=== PATIENT | female | born 1980 | race Caucasian/White ===

== ENCOUNTER 2016-10-21 19:56 | Emergency (ER) | payer OTHER ==
--- NOTE | 2016-10-21 20:29 | ED NURSING NOTES ---
Clinical Report - Nurses [facility] [place] [address] 10/21/2016 19:57 Patient: BRITTANY HENDRICKSON TRIAGE Triage time 2004. Acuity: LEVEL 4. Chief Complaint: INJURY TO LEFT SHOULDER. Alert. --20:19 Tanya Perez 20:16 10/21/16. BP: 157/81. HR: 115. RR: 20. O2 saturation: 98%. Temp: 98.2 F. Pain level now 05/18. --20:19 Tanya Perez. Weight: 212.9 kg. Height/Length: 67 inches. BMI: 73.6. --20:15 Tanya Perez. Medications Aleve Oral. --20:17 Tanya Perez. Medication/allergy information source: the patient. --20:19 Tanya Perez. Allergies Tegretol. --20:18 Tanya Perez Phenobarbital. --20:18 Tanya Perez. History Arrived by private vehicle. Historian: patient. Accompanied by family. This occurred (5 days ago). Mechanism of injury: fell. Treatment PATTERNATOR: Splint and (Aleve). SOCIAL HX: Never smoker. Occasional alcohol use. --20:19 Tanya Perez. PROBLEMS: Dysfunctional Uterine Bleeding. Ovarian Cyst. Uterine Fibroid. Gout. Skin Cancer. --20:18 Tanya Perez. ADDITIONAL SURGERIES: Breast reduction. Ear surgery. Tonsillectomy. 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 --20:18 Tanya Perez. Interventions ID band on patient. To treatment room. --20:19 Tanya Perez. PHYSICAL ASSESSMENT Ambulatory to room. GENERAL / NEURO / PSYCH: Oriented X 4. Appears in pain. EXTREMITIES: Limited ROM present. Capillary refill is less than 2 seconds in the extremities. Extremity pulses are within normal limits. Left shoulder: tenderness located in the anterior aspect of the shoulder. Limited ROM due to pain. SKIN: Skin intact. Skin is warm and dry. --20:20 Tanya Perez. NURSING PROGRESS NOTES Reassurance given. Call light placed in reach. Bed placed in lowest position. Brakes of bed on. Patient ready for evaluation- chart flagged. --20:20 Tanya Perez 20:24 10/21/2016 Percocet (Oxycodone-Acetaminophen) PO 5/325 mg Tablets 1 tab given. Allergies verified, confirmed 5 rights and sedative warning given to the patient. --20:24 Tanya Perez 20:24 10/21/2016 Zofran ODT (Ondansetron) PO 4 mg given. Allergies verified and confirmed 5 rights. --20:24 Tanya Perez 20:25 10/21/2016 Prednisone PO 60 mg given. Allergies verified and confirmed 5 rights. --20:25 Tanya Perez. DISPOSITION / DISCHARGE Departure time: 2034. Condition at departure: unchanged and stable. No learning barriers present. Discharge instructions provided and reviewed with the patient. Reviewed medication(s). Patient verbalized understanding. Written instructions provided in [place]. The patient was discharged by the physician. She was discharged home and accompanied by family. She left the Emergency Department ambulatory and via private vehicle. Family member driving. --20:36 Tanya Perez. Locked/Released at 10/21/2016 20:36 by Tanya Perez,
--- NOTE | 2016-10-21 20:29 | ED ORDER SUMMARY ---
..... Patient: BRITTANY HENDRICKSON OrderSheet [facility] VisitID: [id number] [address] [place] [address] 35y, F Registration Date/Time: 10/21/2016 ORDER SHEET Weight: 212.9 kg Allergies: Tegretol, Phenobarbital GENERAL ORDERS: MEDICATION ORDERS: Percocet PO 5/325 mg (NOW) (20:15 10/21/2016 SHImearyan OLIVEIRA) ([facility] Zofran ODT PO 4 mg (NOW) (20:15 10/21/2016 SHImearyan OLIVEIRA) (20:[facility]) Prednisone PO 60 mg (NOW) (20:15 [facility]2016 [facility] IV FLUIDS: ORDER SHEET NOTES: [Electronically signed by Tanya Perez (20:36 10/21/2016)] [Electronically signed by Gil Ferguson DO (22:59 10/21/2016)] [Electronically locked/signed by Tanya Perez (20:36 10/21/2016)]
--- NOTE | 2016-10-21 20:29 | ED ORDER SUMMARY ---
..... Patient: BRITTANY HENDRICKSON OrderSheet [facility] VisitID: [id number] [address] [place] [place] [address] 35y, F Registration Date/Time: 10/21/2016 ORDER SHEET Weight: 212.9 kg Allergies: Tegretol, Phenobarbital GENERAL ORDERS: MEDICATION ORDERS: Percocet PO 5/325 mg (NOW) (20:15 10/21/2016 SHImsaryan OLIVEIRA) (20:[facility] Zofran ODT PO 4 mg (NOW) (20:15 10/21/2016 SHImsaryan OLIVEIRA) (20:[facility] Prednisone PO 60 mg (NOW) (20:15 10/21/2016 [facility] ([facility] IV FLUIDS: ORDER SHEET NOTES: [Electronically signed by Tanya Perez (20:36 10/21/2016)] [Electronically signed by Gil Ferguson DO (22:59 10/21/2016)] [Electronically locked/signed by Tanya Perez (20:36 10/21/2016)]
--- NOTE | 2016-10-21 20:29 | ED NURSING NOTES ---
Clinical Report - Nurses [facility] [place] [address] 10/21/2016 19:57 Patient: BRITTANY HENDRICKSON TRIAGE Triage time 2004. Acuity: LEVEL 4. Chief Complaint: INJURY TO LEFT SHOULDER. Alert. --20:19 Tanya Perez 20:16 10/21/16. BP: 157/81. HR: 115. RR: 20. O2 saturation: 98%. Temp: 98.2 F. Pain level now 05/18. --20:19 Tanya Perez. Weight: 212.9 kg. Height/Length: 67 inches. BMI: 73.6. --20:15 Tanya Perez. Medications Aleve Oral. --20:17 Tanya Perez. Medication/allergy information source: the patient. --20:19 Tanya Perez. Allergies Tegretol. --20:18 Tanya Perez Phenobarbital. --20:18 Tanya Perez. History Arrived by private vehicle. Historian: patient. Accompanied by family. This occurred (5 days ago). Mechanism of injury: fell. Treatment GLOBAL LOGISTICS MANAGER: Splint and (Aleve). SOCIAL HX: Never smoker. Occasional alcohol use. --20:19 Tanya Perez. PROBLEMS: Dysfunctional Uterine Bleeding. Ovarian Cyst. Uterine Fibroid. Gout. Skin Cancer. --20:18 Tanya Perez. ADDITIONAL SURGERIES: Breast reduction. Ear surgery. Tonsillectomy. 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 --20:18 Tanya Perez. Interventions ID band on patient. To treatment room. --20:19 Tanya Perez. PHYSICAL ASSESSMENT Ambulatory to room. GENERAL / NEURO / PSYCH: Oriented X 4. Appears in pain. EXTREMITIES: Limited ROM present. Capillary refill is less than 2 seconds in the extremities. Extremity pulses are within normal limits. Left shoulder: tenderness located in the anterior aspect of the shoulder. Limited ROM due to pain. SKIN: Skin intact. Skin is warm and dry. --20:20 Tanya Perez. NURSING PROGRESS NOTES Reassurance given. Call light placed in reach. Bed placed in lowest position. Brakes of bed on. Patient ready for evaluation- chart flagged. --20:20 Tanya Perez 20:24 10/21/2016 Percocet (Oxycodone-Acetaminophen) PO 5/325 mg Tablets 1 tab given. Allergies verified, confirmed 5 rights and sedative warning given to the patient. --20:24 Tanya Perez 20:24 10/21/2016 Zofran ODT (Ondansetron) PO 4 mg given. Allergies verified and confirmed 5 rights. --20:24 Tanya Perez 20:25 10/21/2016 Prednisone PO 60 mg given. Allergies verified and confirmed 5 rights. --20:25 Tanya Perez. DISPOSITION / DISCHARGE Departure time: 2034. Condition at departure: unchanged and stable. No learning barriers present. Discharge instructions provided and reviewed with the patient. Reviewed medication(s). Patient verbalized understanding. Written instructions provided in [place]. The patient was discharged by the physician. She was discharged home and accompanied by family. She left the Emergency Department ambulatory and via private vehicle. Family member driving. --20:36 Tanya Perez. Locked/Released at 10/21/2016 20:36 by Tanya Perez,
--- NOTE | 2016-10-21 20:29 | ED CLINICAL REPORT ---
Clinical Report - Physicians/Mid Levels Located Within [facility] [address] [place] [address] 10/21/2016 19:57 Patient: BRITTANY HENDRICKSON Time Seen: 20:05. Arrived- By private vehicle. Historian- patient. HISTORY OF PRESENT ILLNESS Chief Complaint: Injury to right shoulder. The injury happened about 5 days ago. Dislocated while raising arm. Patient is experiencing severe pain. Patient denies injury to the head or neck. No other injury. REVIEW OF SYSTEMS The patient has had tingling. No swelling, numbness, weakness, suspected foreign body or skin laceration. PAST HISTORY See nurses notes. Ops:Breast reduction. Ear surgery, excision of skin cancer, Cat scratch fever lesion excision seizures Illness: Asthma, morbid obesity. The patient's dominant hand is the right. SOCIAL HISTORY Never smoker. Occasional alcohol use. No drug use. ADDITIONAL NOTES The nursing notes have been reviewed. PHYSICAL EXAM Vital Signs: 10/21/2016 20:16 BP: 157/81. HR: 115. RR: 20. O2 saturation: 98%. Temp: 98.2 F. Appearance: Alert. Oriented X3. Patient in mild distress. Head: Head atraumatic. Eyes: Pupils equal, round and reactive to light. Eyes normal inspection. ENT: Nose normal. Neck: Normal inspection. Neck supple. C-spine non-tender. CVS: Heart sounds normal. Pulses normal. Respiratory: No respiratory distress. Breath sounds normal. Chest nontender. Abdomen: No visible injury. Obese. Back: Normal inspection. No tenderness. Skin: Skin dry. Normal skin color. Normal skin turgor. Extremities: Left shoulder: moderate tenderness located in the anterior aspect of the shoulder. Limited ROM due to pain. Neurovascular intact distally. No erythema, swelling, laceration, ecchymosis or deformity. Left acromio-clavicular joint: mild tenderness. No erythema, swelling or deformity. Extremities otherwise negative. Neuro, Vascular and Tendons: Sensation intact. Motor intact. Vascular status intact. No pulse deficit present. Skin not pallid. Capillary refill not prolonged. Neuro: Oriented X 3. LABS, X-RAYS, AND EKG Pulse Oximetry: 10/21/2016 20:16 O2 saturation: 98%. (FIO2 - room air). Interpretation: normal. PROGRESS AND PROCEDURES Course of Care: Percocet 5 mg PO given. Prednisone 60 mg PO given. Zofran 4 mg ODT PO given. Pt had recent neg x-rays by report - no indication for repeat. Patient/family counseled. Old ED records reviewed. Disposition: Discharged. Condition: stable and improved. CLINICAL IMPRESSION Muscle strain of the right deltoid and rotator cuff at the shoulder. Acute traumatic tendonitis in the right shoulder. INSTRUCTIONS Apply ice. Elevate affected areas above chest level. Wear simple sling as needed. Do not work for two days. (Gentle range of motion exercised with the shoulder - as directed). Warnings: SEDATIVE MEDICATION: You were given sedative medication during your visit. Do not drive or operate dangerous machinery. CONTROLLED SUBSTANCE WARNINGS. Further evaluation is necessary in order to conduct further tests (You may need an MRI of your shoulder if not improving - to be determined by your orthopedic doctor). It is very important to follow up with a physician. GENERAL WARNINGS: Return or contact your physician immediately if your condition worsens or changes unexpectedly, if not improving as expected, or if other problems arise. Your Current Medications: CONTINUE TAKING THE FOLLOWING MEDICATIONS: Aleve Oral. Prescription Medications: Zofran ODT 4 mg: take 1-2 orally every 6 hours as needed for nausea. Dispense five (5). No refill. Substitution is permissible. Oxycodone/APAP 5 mg/325 mg: take 1-2 tablets orally every 8 hours as needed for pain. Dispense ten (10). No refill. Prednisone 20 mg: take 2 orally every day for 3 days. Dispense sufficient quantity. No refills. OTC Medications: Acetaminophen (available over the counter): take according to label instructions. Follow-up: Follow up with your doctor tomorrow as needed. Follow up with an orthopedic surgeon in two days as scheduled. (Electronically signed by Gil Ferguson DO 10/21/2016 22:59)
--- NOTE | 2016-10-21 22:59 | ED DISCHARGE INSTRUCTIONS ---
Patient: BRITTANY HENDRICKSON General Instructions [facility] VisitID: [id number] [place] [address] 35y, F Registration Date/Time: 10/21/2016 Muscle strain of the right deltoid and rotator cuff at the shoulder. Acute traumatic tendonitis in the right shoulder. INSTRUCTIONS Apply ice. Elevate affected areas above chest level. Wear simple sling as needed. Do not work for two days. (Gentle range of motion exercised with the shoulder - as directed). Warnings: SEDATIVE MEDICATION: You were given sedative medication during your visit. Do not drive or operate dangerous machinery. CONTROLLED SUBSTANCE WARNINGS. Further evaluation is necessary in order to conduct further tests (You may need an MRI of your shoulder if not improving - to be determined by your orthopedic doctor). It is very important to follow up with a physician. GENERAL WARNINGS: Return or contact your physician immediately if your condition worsens or changes unexpectedly, if not improving as expected, or if other problems arise. Your Current Medications: CONTINUE TAKING THE FOLLOWING MEDICATIONS: Aleve Oral. Prescription Medications: Zofran ODT 4 mg: take 1-2 orally every 6 hours as needed for nausea. Dispense five (5). No refill. Substitution is permissible. Oxycodone/APAP 5 mg/325 mg: take 1-2 tablets orally every 8 hours as needed for pain. Dispense ten (10). No refill. Prednisone 20 mg: take 2 orally every day for 3 days. Dispense sufficient quantity. No refills. OTC Medications: Acetaminophen (available over the counter): take according to label instructions. Follow-up: Follow up with your doctor tomorrow as needed. Follow up with an orthopedic surgeon in two days as scheduled. ADDITIONAL INFORMATION Muscle Strain,Extremity A MUSCLE STRAIN is a stretching and tearing of muscle fibers. This causes pain, especially with motion of that muscle. There may also be some swelling and bruising. Home Care: 1) Keep the injured area raised to reduce pain and swelling. This is especially important during the first 48 hours. 2) Make an ice pack (ice cubes in a plastic bag, wrapped in a towel) and apply for 20 minutes every 1-2 hours the first day. You should continue with ice packs 3-4 times a day for the second and third days. Unless otherwise instructed, on the fourth day you may begin hot soaks or hot packs (small towel soaked in hot water) 3-4 times a day while you gently exercise the involved area. 3) You may use acetaminophen (Tylenol) or ibuprofen (Motrin, Advil) to control pain, unless another medicine was prescribed. [ NOTE : If you have chronic liver or kidney disease or ever had a stomach ulcer or GI bleeding, talk with your doctor before using these medicines.] 4) For LEG STRAINS: If CRUTCHES have been recommended, do not bear full weight on the injured leg until you can do so without pain. You may return to sports when you are able to hop and run on the injured leg without pain. Follow Up with your doctor or this facility if you are not improving within the next five days. Get Prompt Medical Attention if any of the following occur: -- Fingers or toes become swollen, cold, blue, numb or tingly -- Pain or swelling increases Tendonitis A tendon is the thick fibrous cord that joins muscle to bone and causes joints to move. Tendonitis is inflammation of the tendon which may be due to overuse, injury or infection. This usually involves the shoulders, forearm, wrist, hands and foot. Symptoms include local pain, swelling and tenderness to the touch. Movement of the involved joint increases the pain. Tendonitis requires about 4 to 6 weeks to heal. It is treated by preventing motion of the tendon with a splint or brace and use of anti-inflammatory medicine. Home Care: Apply an ice pack (ice cubes in a plastic bag, wrapped in a towel) over the injured area for 20 minutes every 1-2 hours the first day for pain relief. Continue this 3-4 times a day until the pain and swelling goes away. Rest the inflamed joint and protect it from movement. You may use ibuprofen (Motrin, Advil) or naproxen (Aleve, Naprosyn) to treat pain and inflammation, unless another medicine was prescribed. If you can't take these medicines, acetaminophen (Tylenol) may help with the pain, but does not treat inflammation. [NOTE : If you have chronic liver or kidney disease or ever had a stomach ulcer or GI bleeding, talk with your doctor before using these medicines.] As your symptoms improve, begin gradual motion at the involved joint. Follow Up With Your Doctor If Not Improving After The First Five Days Of Treatment. Get Prompt Medical Attention If Any Of The Following Occur: Redness over the painful area Increasing pain or swelling at the joint Fever of 100.4F (38C) or higher, or as directed by your healthcare provider Sling A sling is designed to support your arm in a position of rest. It is used for injuries of the hand, forearm, upper arm, and shoulder. A shoulder that is immobilized too long can become stiff and lose range of motion. Follow up with your doctor as advised and do not use the sling longer than directed. Home Use: Leave the sling in place as long as directed by your doctor. Unless told otherwise, you may remove it when bathing, dressing, and when you go to sleep. The sling is adjustable. If it becomes loose, adjust it so that your forearm is horizontal (level with the ground). Your hand should be level with the elbow. Ondansetron Oral disintegrating tablet What is this medicine? ONDANSETRON (on TEE se reuben) is used to treat nausea and vomiting caused by chemotherapy. It is also used to prevent or treat nausea and vomiting after surgery. How should I use this medicine? These tablets are made to dissolve in the mouth. Do not try to push the tablet through the foil backing. With dry hands, peel away the foil backing and gently remove the tablet. Place the tablet in the mouth and allow it to dissolve, then swallow. While you may take these tablets with water, it is not necessary to do so. Talk to your rice farmer regarding the use of this medicine in children. Special care may be needed. What side effects may I notice from receiving this medicine? Side effects that you should report to your doctor or health assistant child care teacher as soon as possible: allergic reactions like skin rash, itching or hives, swelling of the face, lips, or tongue breathing problems dizziness fast or irregular heartbeat feeling faint or lightheaded, falls fever and chills swelling of the hands and feet tightness in the chest Side effects that usually do not require medical attention (report to your doctor or health assistant child care teacher if they continue or are bothersome): constipation or diarrhea headache What may interact with this medicine? Do not take this medicine with any of the following medications: -apomorphine -cisapride -dofetilide -dronedarone -pimozide -thioridazine -ziprasidone This medicine may also interact with the following medications: -carbamazepine -phenytoin -rifampicin -tramadol -other medicines that prolong the QT interval (cause an abnormal heart rhythm) What if I miss a dose? If you miss a dose, take it as soon as you can. If it is almost time for your next dose, take only that dose. Do not take double or extra doses. Where should I keep my medicine? Keep out of the reach of children. Store between 2 and 30 degrees C (36 and 86 degrees F). Throw away any unused medicine after the expiration date. What should I tell my health care provider before I take this medicine? They need to know if you have any of these conditions: heart disease history of irregular heartbeat liver disease low levels of magnesium or potassium in the blood an unusual or allergic reaction to ondansetron, granisetron, other medicines, foods, dyes, or preservatives or trying to get breast-feeding What should I watch for while using this medicine? Check with your doctor or health assistant child care teacher as soon as you can if you have any sign of an allergic reaction. Oxycodone Hydrochloride, Acetaminophen Oral tablet What is this medicine? ACETAMINOPHEN; OXYCODONE (a set a MACIEJ monse fen; ox i KOE done) is a pain reliever. It is used to treat mild to moderate pain. How should I use this medicine? Take this medicine by mouth with a full glass of water. Follow the directions on the prescription label. Take your medicine at regular intervals. Do not take your medicine more often than directed. Talk to your rice farmer regarding the use of this medicine in children. Special care may be needed. Patients over 65 years old may have a stronger reaction and need a smaller dose. What side effects may I notice from receiving this medicine? Side effects that you should report to your doctor or health assistant child care teacher as soon as possible: allergic reactions like skin rash, itching or hives, swelling of the face, lips, or tongue breathing difficulties, wheezing confusion light headedness or fainting spells severe stomach pain yellowing of the skin or the whites of the eyes Side effects that usually do not require medical attention (report to your doctor or health assistant child care teacher if they continue or are bothersome): dizziness drowsiness nausea vomiting What may interact with this medicine? alcohol antihistamines barbiturates like amobarbital, butalbital, butabarbital, methohexital, pentobarbital, phenobarbital, thiopental, and secobarbital benztropine drugs for bladder problems like solifenacin, trospium, oxybutynin, tolterodine, hyoscyamine, and methscopolamine drugs for breathing problems like ipratropium and tiotropium drugs for certain stomach or intestine problems like propantheline, homatropine methylbromide, glycopyrrolate, atropine, belladonna, and dicyclomine general anesthetics like etomidate, ketamine, nitrous oxide, propofol, desflurane, enflurane, halothane, isoflurane, and sevoflurane medicines for depression, anxiety, or psychotic disturbances medicines for sleep muscle relaxants naltrexone narcotic medicines (opiates) for pain phenothiazines like perphenazine, thioridazine, chlorpromazine, mesoridazine, fluphenazine, prochlorperazine, promazine, and trifluoperazine scopolamine tramadol trihexyphenidyl What if I miss a dose? If you miss a dose, take it as soon as you can. If it is almost time for your next dose, take only that dose. Do not take double or extra doses. Where should I keep my medicine? Keep out of the reach of children. This medicine can be abused. Keep your medicine in a safe place to protect it from theft. Do not share this medicine with anyone. Selling or giving away this medicine is dangerous and against the law. Store at room temperature between 20 and 25 degrees C (68 and 77 degrees F). Keep container tightly closed. Protect from light. This medicine may cause accidental overdose and if it is taken by other adults, children, or pets. Flush any unused medicine down the toilet to reduce the chance of harm. Do not use the medicine after the expiration date. What should I tell my health care provider before I take this medicine? They need to know if you have any of these conditions: brain tumor Crohn's disease, inflammatory bowel disease, or ulcerative colitis drink more than 3 alcohol containing drinks per day drug abuse or addiction head injury heart or circulation problems kidney disease or problems going to the bathroom liver disease lung disease, asthma, or breathing problems an unusual or allergic reaction to acetaminophen, oxycodone, other opioid analgesics, other medicines, foods, dyes, or preservatives or trying to get breast-feeding What should I watch for while using this medicine? Tell your doctor or health assistant child care teacher if your pain does not go away, if it gets worse, or if you have new or a different type of pain. You may develop tolerance to the medicine. Tolerance means that you will need a higher dose of the medication for pain relief. Tolerance is normal and is expected if you take this medicine for a long time. Do not suddenly stop taking your medicine because you may develop a severe reaction. Your body becomes used to the medicine. This does NOT mean you are addicted. Addiction is a behavior related to getting and using a drug for a non-medical reason. If you have pain, you have a medical reason to take pain medicine. Your doctor will tell you how much medicine to take. If your doctor wants you to stop the medicine, the dose will be slowly lowered over time to avoid any side effects. You may get drowsy or dizzy. Do not drive, use machinery, or do anything that needs mental alertness until you know how this medicine affects you. Do not stand or sit up quickly, especially if you are an older patient. This reduces the risk of dizzy or fainting spells. Alcohol may interfere with the effect of this medicine. Avoid alcoholic drinks. There are different types of narcotic medicines (opiates) for pain. If you take more than one type at the same time, you may have more side effects. Give your health care provider a list of all medicines you use. Your doctor will tell you how much medicine to take. Do not take more medicine than directed. Call emergency for help if you have problems breathing. The medicine will cause constipation. Try to have a bowel movement at least every 2 to 3 days. If you do not have a bowel movement for 3 days, call your doctor or health assistant child care teacher. Do not take Tylenol (acetaminophen) or medicines that have acetaminophen with this medicine. Too much acetaminophen can be very dangerous. Many nonprescription medicines contain acetaminophen. Always read the labels carefully to avoid taking more acetaminophen. Prednisone Oral tablet What is this medicine? PREDNISONE (PRED ni sone) is a corticosteroid. It is commonly used to treat inflammation of the skin, joints, lungs, and other organs. Common conditions treated include asthma, allergies, and arthritis. It is also used for other conditions, such as blood disorders and diseases of the adrenal glands. How should I use this medicine? Take this medicine by mouth with a glass of water. Follow the directions on the prescription label. Take this medicine with food. If you are taking this medicine once a day, take it in the morning. Do not take more medicine than you are told to take. Do not suddenly stop taking your medicine because you may develop a severe reaction. Your doctor will tell you how much medicine to take. If your doctor wants you to stop the medicine, the dose may be slowly lowered over time to avoid any side effects. Talk to your rice farmer regarding the use of this medicine in children. Special care may be needed. What side effects may I notice from receiving this medicine? Side effects that you should report to your doctor or health assistant child care teacher as soon as possible: allergic reactions like skin rash, itching or hives, swelling of the face, lips, or tongue changes in emotions or moods changes in vision depressed mood eye pain fever or chills, cough, sore throat, pain or difficulty passing urine increased thirst swelling of ankles, feet Side effects that usually do not require medical attention (report to your doctor or health assistant child care teacher if they continue or are bothersome): confusion, excitement, restlessness headache nausea, vomiting skin problems, acne, thin and shiny skin trouble sleeping weight gain What may interact with this medicine? Do not take this medicine with any of the following medications: metyrapone mifepristone This medicine may also interact with the following medications: aminoglutethimide amphotericin B aspirin and aspirin-like medicines barbiturates certain medicines for diabetes, like glipizide or glyburide cholestyramine cholinesterase inhibitors cyclosporine digoxin diuretics ephedrine female hormones, like estrogens and control pills isoniazid ketoconazole NSAIDS, medicines for pain and inflammation, like ibuprofen or naproxen phenytoin rifampin toxoids vaccines warfarin What if I miss a dose? If you miss a dose, take it as soon as you can. If it is almost time for your next dose, talk to your doctor or health assistant child care teacher. You may need to miss a dose or take an extra dose. Do not take double or extra doses without advice. Where should I keep my medicine? Keep out of the reach of children. Store at room temperature between 15 and 30 degrees C (59 and 86 degrees F). Protect from light. Keep container tightly closed. Throw away any unused medicine after the expiration date. What should I tell my health care provider before I take this medicine? They need to know if you have any of these conditions: Brooklyn's syndrome diabetes glaucoma heart disease high blood pressure infection (especially a virus infection such as chickenpox, cold sores, or herpes) kidney disease liver disease mental illness myasthenia gravis osteoporosis seizures stomach or intestine problems thyroid disease an unusual or allergic reaction to lactose, prednisone, other medicines, foods, dyes, or preservatives or trying to get breast-feeding What should I watch for while using this medicine? Visit your doctor or health assistant child care teacher for regular checks on your progress. If you are taking this medicine over a prolonged period, carry an identification card with your name and address, the type and dose of your medicine, and your doctor's name and address. This medicine may increase your risk of getting an infection. Tell your doctor or health assistant child care teacher if you are around anyone with measles or chickenpox, or if you develop sores or blisters that do not heal properly. If you are going to have surgery, tell your doctor or health assistant child care teacher that you have taken this medicine within the last twelve months. Ask your doctor or health assistant child care teacher about your diet. You may need to lower the amount of salt you eat. This medicine may affect blood sugar levels. If you have diabetes, check with your doctor or health assistant child care teacher before you change your diet or the dose of your diabetic medicine. Acetaminophen Oral tablet What is this medicine? ACETAMINOPHEN (a set a MACIEJ monse fen) is a pain reliever. It is used to treat mild pain and fever. How should I use this medicine? Take this medicine by mouth with a glass of water. Follow the directions on the package or prescription label. Take your medicine at regular intervals. Do not take your medicine more often than directed. Talk to your rice farmer regarding the use of this medicine in children. While this drug may be prescribed for children as young as 6 years of age for selected conditions, precautions do apply. What side effects may I notice from receiving this medicine? Side effects that you should report to your doctor or health assistant child care teacher as soon as possible: allergic reactions like skin rash, itching or hives, swelling of the face, lips, or tongue breathing problems fever or sore throat redness, blistering, peeling or loosening of the skin, including inside the mouth trouble passing urine or change in the amount of urine unusual bleeding or bruising unusually weak or tired yellowing of the eyes or skin Side effects that usually do not require medical attention (report to your doctor or health assistant child care teacher if they continue or are bothersome): headache nausea, stomach upset What may interact with this medicine? alcohol imatinib isoniazid other medicines with acetaminophen What if I miss a dose? If you miss a dose, take it as soon as you can. If it is almost time for your next dose, take only that dose. Do not take double or extra doses. Where should I keep my medicine? Keep out of reach of children. Store at room temperature between 20 and 25 degrees C (68 and 77 degrees F). Protect from moisture and heat. Throw away any unused medicine after the expiration date. What should I tell my health care provider before I take this medicine? They need to know if you have any of these conditions: if you frequently drink alcohol containing drinks liver disease an unusual or allergic reaction to acetaminophen, other medicines, foods, dyes or preservatives or trying to get breast-feeding What should I watch for while using this medicine? Tell your doctor or health assistant child care teacher if the pain lasts more than 10 days (5 days for children), if it gets worse, or if there is a new or different kind of pain. Also, check with your doctor if a fever lasts for more than 3 days. Do not take other medicines that contain acetaminophen with this medicine. Always read labels carefully. If you have questions, ask your doctor or pharmacist. If you take too much acetaminophen get medical help right away. Too much acetaminophen can be very dangerous and cause liver damage. Even if you do not have symptoms, it is important to get help right away. You have been given the following additional information: Muscle Strain, Extremity Tendonitis Sling Ondansetron Oral disintegrating tablet Oxycodone Hydrochloride, Acetaminophen Oral tablet Prednisone Oral tablet Acetaminophen Oral tablet Do not work for two days. (Electronically signed by Gil Ferguson DO 10/21/2016 22:59)
--- NOTE | 2016-10-21 22:59 | ED MED RECONCILIATION SUMMARY ---
Patient: BRITTANY HENDRICKSON Medication Reconciliation Report [facility] VisitID: [id number] [address] [place] [place] [address] 35y, F Registration Date/Time: 10/21/2016 Weight: 212.9 kg Height/Length: 67 in. BMI: 73.6 ALLERGIES: Phenobarbital, Tegretol The patient's Home Medications are listed below: CONTINUE TAKING THE FOLLOWING MEDICATIONS: Aleve Oral The source(s) of the original Home Medication information: patient The following Medications were given to the patient in the Emergency Department: Percocet [PO] PO 1 tab, administered: 10/21/2016 8:24:00 PM Zofran ODT [PO] PO 4 mg, administered: 10/21/2016 8:24:00 PM Prednisone [PO] PO 60 mg, administered: 10/21/2016 8:25:00 PM The following Medications were prescribed to the patient: Acetaminophen (available over the counter): take according to label instructions. -- Gil Ferguson DO Zofran ODT 4 mg: take 1-2 orally every 6 hours as needed for nausea. Dispense five (5). No refill. Substitution is permissible. -- Gil Ferguson DO Oxycodone/APAP 5 mg/325 mg: take 1-2 tablets orally every 8 hours as needed for pain. Dispense ten (10). No refill. -- Gil Ferguson DO Prednisone 20 mg: take 2 orally every day for 3 days. Dispense sufficient quantity. No refills. -- Gil Ferguson DO
--- NOTE | 2016-10-21 22:59 | ED MED RECONCILIATION SUMMARY ---
Patient: BRITTANY HENDRICKSON Medication Reconciliation Report [facility] VisitID: [id number] [address] [place] [address] 35y, F Registration Date/Time: 10/21/2016 Weight: 212.9 kg Height/Length: 67 in. BMI: 73.6 ALLERGIES: Phenobarbital, Tegretol The patient's Home Medications are listed below: CONTINUE TAKING THE FOLLOWING MEDICATIONS: Aleve Oral The source(s) of the original Home Medication information: patient The following Medications were given to the patient in the Emergency Department: Percocet [PO] PO 1 tab, administered: 10/21/2016 8:24:00 PM Zofran ODT [PO] PO 4 mg, administered: 10/21/2016 8:24:00 PM Prednisone [PO] PO 60 mg, administered: 10/21/2016 8:25:00 PM The following Medications were prescribed to the patient: Acetaminophen (available over the counter): take according to label instructions. -- Gil Ferguson DO Zofran ODT 4 mg: take 1-2 orally every 6 hours as needed for nausea. Dispense five (5). No refill. Substitution is permissible. -- Gil Ferguson DO Oxycodone/APAP 5 mg/325 mg: take 1-2 tablets orally every 8 hours as needed for pain. Dispense ten (10). No refill. -- Gil Ferguson DO Prednisone 20 mg: take 2 orally every day for 3 days. Dispense sufficient quantity. No refills. -- Gil Ferguson DO
--- NOTE | 2016-10-21 22:59 | ED MAR SUMMARY ---
..... Medication Administration Record [facility] [address] [place] [address] Patient: BRITTANY HENDRICKSON Visit ID: [id number] 35y, F Weight: 212.9 kg Height/Length: 67 in BMI: 73.6 ALLERGIES: Phenobarbital, Tegretol Given 20:10/21/2016 Tanya Perez, Medication Administered: PERCOCET [PO] (OXYCODONE-ACETAMINOPHEN), Dose: 1 tab 5/325 mg Tablets PO. Medication Ordered: Percocet PO 5/325 mg (NOW). Given 20:10/21/2016 Tanya Perez, Medication Administered: ZOFRAN ODT [PO] (ONDANSETRON), Dose: 4 mg PO. Medication Ordered: Zofran ODT PO 4 mg (NOW). Given 20:10/21/2016 Tanya Perez, Medication Administered: PREDNISONE [PO], Dose: 60 mg PO. Medication Ordered: Prednisone PO 60 mg (NOW).
--- NOTE | 2016-10-21 22:59 | ED MAR SUMMARY ---
..... Medication Administration Record Merg[facility] With [facility] [address] [place] [address] Patient: BRITTANY HENDRICKSON Visit ID: [id number] 35y, F Weight: 212.9 kg Height/Length: 67 in BMI: 73.6 ALLERGIES: Phenobarbital, Tegretol Given 20:10/21/2016 Tanya Perez, Medication Administered: PERCOCET [PO] (OXYCODONE-ACETAMINOPHEN), Dose: 1 tab 5/325 mg Tablets PO. Medication Ordered: Percocet PO 5/325 mg (NOW). Given 20:10/21/2016 Tanya Perez, Medication Administered: ZOFRAN ODT [PO] (ONDANSETRON), Dose: 4 mg PO. Medication Ordered: Zofran ODT PO 4 mg (NOW). Given 20:10/21/2016 Tanya Perez, Medication Administered: PREDNISONE [PO], Dose: 60 mg PO. Medication Ordered: Prednisone PO 60 mg (NOW).
== END 2016-10-21 20:35 | disposition home or self-care (01) ==
LOC: ED SRH 19:56
DX: S46.011A Strain of muscle(s) and tendon(s) of the rotator cuff of right shoulder, initial encounter (principal); S46.811A Strain of other muscles, fascia and tendons at shoulder and upper arm level, right arm, initial encounter; M75.91 Shoulder lesion, unspecified, right shoulder; X50.0XXA Overexertion from strenuous movement or load, initial encounter; Y92.9 Unspecified place or not applicable; Y93.9 Activity, unspecified; Y99.9 Unspecified external cause status